=== PATIENT | female | born 1980 | race Caucasian/White ===

== ENCOUNTER 2016-12-31 21:11 | Emergency (ER) | payer OTHER ==
--- NOTE | ~2016-12-31 | CR63 ---
[facility] A Service of [facility] RADIOLOGY TEXT RESULTS PATIENT: TALA BARILLAS LOCATION: SED : [birth year] UNIT #: [id number] AGE: [address]: Nicolas Cortes MD SEX: F ORDER DR: [id number] [address] [address] [id number] E MR#: [id number] Acc #: [id number] NAME: TALA BARILLAS. : 1980 SEX: F STUDY DATE/TIME: 12/31/2016 20:41 UNIT: SED ROOM: STUDY DESCRIPTION: CR Chest 2 View Attending Physician: Nicolas Cortes M.D. Ordering Physician: Nicolas Cortes M.D. MEDICAL IMAGING REPORT This report is preliminary unless electronic signature is present. EXAM PA and lateral chest. HISTORY Chest pain and cough and fever for 4 days. Left side pain. FINDINGS 2 views of the chest demonstrate moderately dense and moderately extensive infiltrate in the lateral left mid and lower lung, likely primarily in the lingula. Although nonspecific, this could be due to pneumonia. Right lung is clear. No pleural effusions. Cardiac size and pulmonary vascularity are normal. Small cervical ribs. IMPRESSION Moderately dense and moderately extensive infiltrate in the lateral left mid and lower lung, most likely primarily in the lingula. Although nonspecific, this could be due to pneumonia. Recommend short-term followup chest x-ray to document resolution after appropriate assessment and treatment. Dictated by... Edy Yip M.D. THIS IS AN ELECTRONICALLY VERIFIED REPORT Edy Yip M.D. at 01/01/2017 11:27 PM DFL/milli TD: 01/01/2017 09:01 JOB #: [id number] [facility] A Service of [facility] RADIOLOGY TEXT RESULTS PATIENT: TALA BARILLAS LOCATION: SED : 80 UNIT #: [id number] AGE: [address]: Nicolas Cortes MD SEX: F ORDER DR: MEDICAL IMAGING REPORT
[2016-12-31 20:51] LABS: INFLUENZA A NEG (NEG); INFLUENZA B NEG (NEG)
[2016-12-31 21:33] LABS: BASOPHIL# 0.1 X10e3 (0-0.3); BASOPHIL% 0.4 % (0-2.5); HEMATOCRIT 33.5 % (35.0-45.0); HEMOGLOBIN 11.2 gm/dL (12.0-16.0); LYMPHOCYTE# 1.3 X10e3 (1.0-3.5); LYMPHOCYTE% 8.2 % (17.0-45.0); MEAN CELL VOLUME 88.5 FL (83-96); MEAN CORPUSCULAR HEMOGLOBIN 29.5 PG (28-34); MEAN CORPUSCULAR HGB CONC 33.3 g/dL (30-36); MEAN PLATELET VOLUME 8.1 FL (6.5-11.5); MONOCYTE# 1.5 X10e3 (0-1.0); MONOCYTE% 9.9 % (3.0-12.0); NEUTROPHIL# 12.6 X10e3 (1.5-7.1); NEUTROPHIL% 81.5 % (40-75); PLATELET COUNT 265 X10e3 (140-420); RED BLOOD COUNT 3.79 X10e (3.90-5.30); RED CELL DISTRIBUTION WIDTH 14.3 % (11.0-15.5); WHITE BLOOD COUNT 15.5 X10e3 (4.0-10.5)
[2016-12-31 21:35] LABS: DIFF IND NO
[2016-12-31 21:51] LABS: ALKALINE PHOSPHATASE 78 U/L (32-92); ALT (SGPT) 29 U/L (10-40); AST (SGOT) 37 U/L (10-42); BILIRUBIN,TOTAL 0.3 mg/dL (0.2-2.0); BLOOD UREA NITROGEN 9 mg/dL (9-23); BUN/CREATININE RATIO 11.25; CALCIUM SERUM 8.1 mg/dL (8.4-10.2); CARBON DIOXIDE 24 mmol/L (22-31); CHLORIDE 100 mmol/L (100-111); CREATININE SERUM 0.8 mg/dL (0.6-1.4); GLOM FILT RATE Estimated ABOVE60 mL/min (>60); GLUCOSE FASTING 148 mg/dL (70-110); POTASSIUM 3.3 mmol/L (3.5-5.1); PROTEIN TOTAL SERUM 7.2 g/dL (6.0-8.3); SODIUM 132 mmol/L (135-145)
== END 2016-12-31 23:05 | disposition home or self-care (01) ==
LOC: SED 21:11
PROVIDERS: Emergency Medicine
DX: J18.1 Lobar pneumonia, unspecified organism (principal); F17.210 Nicotine dependence, cigarettes, uncomplicated; Z88.2 Allergy status to sulfonamides
CPT/HCPCS: 36415; 71020; 80053; 83605; 85025; 87040; 87804; 96365; 99284; J1956

== ENCOUNTER 2017-04-28 12:08 | Emergency (ER) | payer OTHER ==
--- NOTE | ~2017-04-28 | CT2 ---
[facility] A Service of [facility] RADIOLOGY TEXT RESULTS PATIENT: TALA BARILLAS LOCATION: SED : [birth year] UNIT #: [id number] AGE: [address]: Sanju Alatorre MD SEX: F ORDER DR: [id number] [address] [address] [id number] E MR#: [id number] Acc #: [id number] NAME: TALA BARILLAS. : 1980 SEX: F STUDY DATE/TIME: 04/28/2017 14:02 UNIT: SED ROOM: STUDY DESCRIPTION: CT Abd and Pelv W Cont Attending Physician: Sanju Alatorre M.D. Ordering Physician: Sanju Alatorre M.D. Primary Care Physician: No Primary Care Physician MEDICAL IMAGING REPORT This report is preliminary unless electronic signature is present. EXAM CT of abdomen and pelvis with contrast. HISTORY 36-year-old female with abdominal pain for 4 days with constipation. Elevated white blood cell count 18.2000. TECHNIQUE Axial images performed through the abdomen and pelvis following IV and oral contrast. Multiplanar reconstructed images reviewed at a workstation. This CT exam was performed with one or more of the following radiation dose reduction techniques: automatic exposure control, adjustment of mA and/or kV according to patient size, and iterative reconstruction. FINDINGS ABDOMEN: Lung bases unremarkable. The liver, spleen, gallbladder, pancreas, kidneys and adrenal glands appear normal. The stomach, small bowel unremarkable. Moderate amount of stool and fluid within the colon. The appendix not clearly identified. Retroperitoneum unremarkable. PELVIS: The bladder and uterus appear normal. Prominent complex structures are seen within the adnexa bilaterally. I suspect this represents the ovarian complex. There is also associated surrounding mesenteric edema and a small amount of free fluid in the pelvis. In the right adnexa there is a 2.7 x 3.1 x 3.3 cm low-attenuation lesion which shows some peripheral enhancement. I suspect this represents an ovarian cyst. On the right, there is a questionable distension of the tubal complex of the right ovary and uterus and this raises a concern for possible developing tuboovarian abscess or salpingitis. Osseous structures remarkable for L3-4 degenerative disc changes with mild spinal stenosis. [facility] A Service of [facility] RADIOLOGY TEXT RESULTS PATIENT: TALA BARILLAS LOCATION: [facility] [place] : [birth year] UNIT #: [id number] AGE: [address]: Sanju Alatorre MD SEX: F ORDER DR: IMPRESSION Prominent complex adnexal structures within the pelvis which shows some heterogeneous enhancement and areas of decreased attenuation. This in combination with a small amount of free fluid as well as inflammatory changes within the mesenteric and pelvic fat raises a concern for an active inflammatory process. On the right, this suggests that there may be distension of the right fallopian tube. This may represent either salpingitis or developing tuboovarian abscess. A prominent cystic structure is seen on the right measuring up to 3.3 cm but I suspect this just represents a normal follicular cyst, although this could potentially represent a developing abscess. The appendix is not clearly identified but a structure is seen above the pelvis which probably represents the appendix and the cecum terminates well above the pelvic region, and I doubt this represents a manifestation of appendicitis and again I suspect this is predominately tubal or tuboovarian(PID) in nature. Uterus unremarkable. Dictated by... Astrid Gonzalez M.D. THIS IS AN ELECTRONICALLY VERIFIED REPORT Astrid Gonzalez M.D. at 04/30/2017 7:28 AM Cecilia TD: 04/28/2017 19:06 JOB #: [id number] MEDICAL IMAGING REPORT Page 1 of 1
[2017-04-28] MEDS ORDERED: NO MEDICATIONS (12:14)
[2017-04-28 12:37] LABS: BASOPHIL# 0.1 X10e3 (0-0.3); BASOPHIL% 0.6 % (0-2.5); EOSINOPHIL% 0.1 % (0.0-7.0); HEMATOCRIT 42.6 % (35.0-45.0); HEMOGLOBIN 14.4 gm/dL (12.0-16.0); LYMPHOCYTE# 0.9 X10e3 (1.0-3.5); LYMPHOCYTE% 4.9 % (17.0-45.0); MEAN CELL VOLUME 89.2 FL (83-96); MEAN CORPUSCULAR HEMOGLOBIN 30.2 PG (28-34); MEAN CORPUSCULAR HGB CONC 33.8 g/dL (30-36); MEAN PLATELET VOLUME 7.8 FL (6.5-11.5); MONOCYTE# 0.7 X10e3 (0-1.0); MONOCYTE% 3.8 % (3.0-12.0); NEUTROPHIL# 16.5 X10e3 (1.5-7.1); NEUTROPHIL% 90.6 % (40-75); PLATELET COUNT 330 X10e3 (140-420); RED BLOOD COUNT 4.78 X10e (3.90-5.30); RED CELL DISTRIBUTION WIDTH 14.3 % (11.0-15.5); WHITE BLOOD COUNT 18.2 X10e3 (4.0-10.5)
[2017-04-28 12:39] LABS: DIFF IND NO
[2017-04-28 12:55] LABS: ALBUMIN SERUM 4.5 g/dL (3.5-5.0); BILIRUBIN,TOTAL 0.6 mg/dL (0.2-2.0); BUN/CREATININE RATIO 13.33; CALCIUM SERUM 9.2 mg/dL (8.4-10.2); CREATININE SERUM 0.9 mg/dL (0.6-1.4); GLOM FILT RATE Estimated 82.3 mL/min (>60); POTASSIUM 3.7 mmol/L (3.5-5.1); PROTEIN TOTAL SERUM 8.5 g/dL (6.0-8.3)
[2017-04-28 14:59] LABS: URINE SOURCE CLEAN CATCH
[2017-04-28 15:01] LABS: URINE APPEARANCE CLEAR; URINE BILIRUBIN NEG (NEG); URINE BLOOD 3+ (NEG); URINE COLOR YELLOW; URINE GLUCOSE NEG (NORM); URINE KETONE NEG (NEG); URINE LEUKOCYTE ESTERASE TRACE (NEG); URINE NITRATE POS (NEG); URINE PH 5.5 (5-8); URINE PROTEIN NEG (NEG); URINE SPECIFIC GRAVITY <=1.005 (1.003-1.035)
[2017-04-28 15:13] LABS: MICRO INDICATED? YES
[2017-04-28 15:15] LABS: CULTURE INDICATED? YES; URINE BACTERIA NEG (NEG); URINE SQUAMOUS EPITHELIAL CELL MODERATE /[HPF]
== END 2017-04-28 17:00 | disposition hospice, home (50) ==
LOC: SED 12:08
PROVIDERS: Emergency Medicine
DX: N83.209 Unspecified ovarian cyst, unspecified side (principal); N73.9 Female pelvic inflammatory disease, unspecified; F17.210 Nicotine dependence, cigarettes, uncomplicated; Z88.2 Allergy status to sulfonamides
CPT/HCPCS: 36415; 74177; 80053; 81003; 83690; 84703; 85025; 87086; 87088; 87186; 96361; 96365; 96367; 99284; J0500; J0696; Q9967